=== PATIENT | female | born 1975 | race Caucasian/White ===

== ENCOUNTER 2017-11-29 13:21 | Emergency (ER) | payer MEDICAID ==
[~2017-11-29] VITALS: Ht 162.6 cm; Wt 70.3 kg
[2017-11-29 13:30] VITALS: BP 119/61
[2017-11-29] MEDS ORDERED: NKM (13:36)
--- NOTE | 2017-11-29 14:11 | Emergency Room Report ---
History of Present Illness General Chief Complaint: Toothache Source: Patient Present Illness HPI 42 YO Female presents to the ED c/O right posterior lower molar pain x 2 days. denies fevers or chills, denies trauma to the tooth. reports she has been trying hot compresses at home with not much relief of her symptoms. Pt. denies recent dental procedures, denies ST. denies exacerbation of swelling with oral intake. Allergies: Coded Allergies: BACITRACIN (Unverified Allergy, Unknown, 11/29/17) NEOMYCIN (Verified Allergy, Unknown, 11/29/17) POLYMYXIN B (Verified Allergy, Unknown, 11/29/17) PREDNISONE (Verified Allergy, Unknown, 11/29/17) Patient History Past Medical History: see triage record Past Surgical History: none Pertinent Family History: none Last Menstrual Period: 10/27/17 Now: No : 5 Para: 2 Reviewed Nursing Documentation: PMH: Agreed; PSxH: Agreed Nursing Documentation-PMH Past Medical History: No History, Except For Hx Cardiac Problems: No - walking pna Review of Systems All Other Systems: negative except mentioned in HPI Physical Exam Vital Signs Date Time Temp Pulse Resp B/P (MAP) Pulse Ox O2 Delivery O2 Flow Rate FiO2 11/29/17 13:29 98.2 68 18 119/61 95 Room Air 98.2 Sp02 EP Interpretation: reviewed, normal General Appearance: no apparent distress - mild to no distress. , alert, GCS 15 , non-toxic Head: normocephalic, atraumatic ENT: hearing grossly normal, normal voice, uvula midline, other - no palpable fluctuance some swelling noted to the right jaw/gum line, tooth no. 2 is tender to percussion with tongue depressor. Neck: full range of motion, no bony tend Respiratory: lungs clear, normal breath sounds, speaking full sentences Cardiovascular #1: regular rate, rhythm Musculoskeletal: back normal, gait/station normal, normal range of motion, non- tender Neurologic: alert, oriented x3, responsive, motor strength/tone normal, sensory intact, speech normal, grossly normal Psychiatric: judgement/insight normal Skin: normal color, no rash, warm/dry, well hydrated Lymphatic: no adenopathy Medical Decision Making PA Attestation Dr. Kapadia is my supervising Physician whom patient management has been discussed with. Diagnostic Impression: Primary Impression: Tooth pulpitis ER Course 42 YO Female presents to the ED c/O right posterior lower molar pain x 2 days. denies fevers or chills, denies trauma to the tooth. reports she has been trying hot compresses at home with not much relief of her symptoms. Pt. denies recent dental procedures, denies ST. denies exacerbation of swelling with oral intake. Ddx considered but are not limited to cellulitis, dental abscess, orbital cellulitis, d/l tooth, dental pain. trigeminal neuralgia Vital signs: are WNL, pt. is afebrile H&PE are most consistent with pulpitis, no palpable fluctuance some swelling noted to the right jaw line, tooth no. 2 is tender to percussion with tongue depressor. ORDERS: none required at this time, the diagnosis is clinical ED INTERVENTIONS: None required at this time. -d/w pt. the importance of dental follow up. shes was given two lists of local free or reduced cost dental care. Gave pt. return precautions especially for development of abscess or further swelling. DISCHARGE: At this time pt. is stable for d/c to home. Will provide printed patient care instructions, and any necessary prescriptions. Care plan and follow up instructions have been discussed with the patient prior to discharge. Last Vital Signs Date Time Temp Pulse Resp B/P (MAP) Pulse Ox O2 Delivery O2 Flow Rate FiO2 11/29/17 13:29 98.2 68 18 119/61 95 Room Air 98.2 Disposition: HOME, SELF-CARE Condition: Stable Scripts Chlorhexidine Gluconate (CHLORHEXIDINE GLUCONATE) 473 Ml Mouthwash 15 ML MM BID, #473 ML Prov: Gaby Nunez 11/29/17 Amoxicillin* (AMOXIL*) 500 Mg Capsule 500 MG ORAL EVERY 8 HOURS for 7 Days, #28 CAP Prov: Gaby Nunez 11/29/17 Ibuprofen* (MOTRIN*) 600 Mg Tablet 600 MG ORAL THREE TIMES A DAY for 5 Days, #15 TAB 0 Refills Prov: Gaby Nunez 11/29/17 Patient Instructions: Dental Pain Additional Instructions: Take medications as directed. Follow up with a Primary Care Provider in 3-5 days, even if your symptoms have resolved. --Please review list of primary care clinics, if you do not already have a primary care provider Return sooner to ED if new symptoms occur, or current symptoms become worse. - Please note that this Emergency Department Report was dictated using [email or web address] technology software, occasionally this can lead to erroneous entry secondary to interpretation by the dictation equipment. Gaby Nunez Nov 29, 2017 14:11
[2017-11-29] MEDS ORDERED: CHLORHEXIDINE473 ML MM (14:13)
[2017-11-29] MEDS ORDERED: IBUPROFEN600 MG ORAL (14:13)
[2017-11-29] MEDS ORDERED: AMOXICILLIN500 MG ORAL (14:13)
[2017-11-29 14:30] VITALS: BP 119/61
== END 2017-11-29 15:40 | disposition home or self-care (01) ==
LOC: EMR 14:57
DX: K04.01 Reversible pulpitis (principal); Z88.1 Allergy status to other antibiotic agents; Z88.8 Allergy status to other drugs, medicaments and biological substances
CPT/HCPCS: 99284